=== PATIENT | female | born 1980 | race Asian ===

== ENCOUNTER 2018-02-01 21:12 | Emergency (ER) | payer OTHER ==
[~2018-02-01] VITALS: Ht 154.9 cm; Wt 48.5 kg
[2018-02-01 21:24] VITALS: Ht 154.9 cm; Wt 48.5 kg
[2018-02-02 00:53] LABS: BASOPHIL % 0.4 % (0-2); PLATELET COUNT 300 x10^3mcL (130-400); RED CELL DISTRIBUTION WIDTH 13.9 % (11.5-14.5)
[2018-02-02 00:58] LABS: CALCIUM 9.2 mg/dL (8.5-10.1); CARBON DIOXIDE 26.8 mmol/L (21-32); CHLORIDE SERUM 104 mmol/L (98-107); CREATININE SERUM 0.7 mg/dL (0.6-1.0); GFR1 > 60 mL/min; GLUCOSE SERUM 91 mg/dL (74-106); SODIUM SERUM 139 mmol/L (136-145)
[2018-02-02 01:03] LABS: ALKALINE PHOSPHATASE 53 U/L (46-116); ALT/SGPT 21 U/L (14-59); AST/SGOT 19 U/L (15-37); BILIRUBIN TOTAL 0.34 mg/dL (0.20-1.00); LIPASE 184 IU/L (73-393)
[2018-02-02 01:52] VITALS: BP 104/70
== END 2018-02-02 01:52 | disposition home or self-care (01) ==
LOC: ED 21:12
PROVIDERS: Emergency Medicine
DX: R06.00 Dyspnea, unspecified (principal); R10.13 Epigastric pain
CPT/HCPCS: 36415

== ENCOUNTER 2018-09-20 17:40 | Emergency (ER) | payer OTHER ==
[~2018-09-20] VITALS: Ht 154.9 cm; Wt 47.2 kg
[2018-09-20 17:53] VITALS: Ht 154.9 cm; Wt 47.2 kg
[2018-09-20 20:18] VITALS: BP 124/68
== END 2018-09-20 20:18 | disposition home or self-care (01) ==
LOC: ED 17:40
DX: K04.7 Periapical abscess without sinus (principal); Z88.1 Allergy status to other antibiotic agents